=== PATIENT | female | born 1940 | race Caucasian/White ===

== ENCOUNTER 2019-07-31 11:28 | Observation (INO) | payer MEDICARE, MEDICAID ==
[2019-07-31 13:01] LABS: Absolute Neutrophil Ct (ANC) 3.55 (1.4-6.9); BASOPHIL % 0.6 % (0.0-0.4); Basophil (Absolute #) 0.03 (0-0.4); Eosinophil % 1.2 % (0.00-5.0); Eosinophil (Absolute #) 0.06 (0-0.5); Hematocrit 42.7 % (35-47); Hemoglobin 14.1 gm/dl (12.0-16.0); Lymphocyte (Absolute #) 0.93 (1.0-4.6); Lymphocytes % 18.5 % (24.0-44.0); Mean Cell Volume 91.8 fl (78-100); Mean Corpuscular Hemoglobin 30.3 pg (26-32); Mean Platelet Volume 9.2 fl (6-9.5); Monocyte (Absolute #) 0.45 (0.0-1.3); Neutrophil % 70.7 % (36.0-66.0); Platelet Count 217 K/mm3 (150-450); Red Blood Count 4.65 M/mm3 (4.1-5.4)
[2019-07-31] MEDS: ROCEPHIN 1 Gm-D5w 50 ml Bag** 1 G/50 ML IVPB IV SCH (13:16)
[2019-07-31] MEDS: Sodium Chloride 0.9% 1000 ML 1,000 ML IV SCH (13:16)
[2019-07-31] MEDS: solu-MEDROL 40 MG IV SCH ×2 (13:16→21:19)
[2019-07-31 13:18] LABS: ALKALINE PHOSPHATASE 60 U/L (38-126); ANION GAP 11.8 MEQ/L (5-15); BLOOD UREA NITROGEN 20 mg/dL (7-17); CHLORIDE 101 mmol/L (98-107); Calcium 9.6 mg/dL (8.4-10.2); Carbon Dioxide 33 mmol/L (22-30); Creatinine 1 0.81 mg/dL (0.52-1.04); Glucose 90 mg/dL (74-106); Potassium 3.5 mmol/L (3.5-5.1); SGOT/AST 45 U/L (14-36); SGPT/ALT 17 U/L (0-35); SODIUM 142 mmol/L (137-145); Total Protein 7.3 g/dL (6.3-8.2)
[2019-07-31] MEDS: DUONEB 0.5-3 MG/3 ml Neb IH SCH ×2 (14:26→20:40)
[2019-07-31] MEDS: Zithromax 500 MG/ 250 ML NaCl Premix 500 MG/250 ML IVPB IV SCH (14:44)
[2019-07-31 17:09] LABS: Appearance CLEAR (CLEAR); Bilirubin NEGATIVE (NEGATIVE); Blood NEGATIVE Ery/ul (0-5); Glucose NEGATIVE (NEGATIVE); Ketones NEGATIVE (NEGATIVE); Leukocyte Esterase TRACE (NEGATIVE); Mucus SLIGHT /HPF (NEGATIVE); Nitrite NEGATIVE (NEGATIVE); Protein,Urine Dip NEGATIVE (Negative); Specific Gravity 1.013 (1.005-1.025); Urobilinogen NEGATIVE mg/dL (0-1); WBC 0-2 /HPF (0-5)
[2019-07-31] MEDS ORDERED: Voltaren GEL TP PRN (17:30)
--- NOTE | 2019-07-31 17:30 | PCM.HP ---
History of Present Illness - Chief Complaint Chief Complaint: PNEUMONIA History of Present Illness: is a 79 year old female pt of mine from [facility] with PMHx HTN, Mobitz II block, Aortic aneurism, hyperglycemia, hyperbilirubinemia, anxiety/depression, and OA who was admitted with PNA after having been seen in [facility] care today. She started feeling sick 4d ago with sinus sx, congestion and rhinorrhea with cough. Today she had chest tightness in the morning, better with mucinex, so she came to be seen. She had wheezing and tight breath sounds on exam in and I was called for direct admission. - Review of Systems Ears, Nose, & Throat: Nose Congestion, Nose Discharge, Sinus Drainage Respiratory: Cough Cardiac: Chest Pain Abdominal/Gastrointestinal: Diarrhea (loose stool yesterday) Neurological: Dizziness (occ lightheadedness) All Other Systems: Reviewed and Negative Medications & Allergies Home Medications: Home Medication List Albuterol Sulfate [Proair Hfa] 8.5 gm IH Q6HPRN PRN 01/10/16 [History Confirmed 07/31/19] Alendronate Sodium 70 mg [Fosamax 70 MG] 70 mg PO WEEKLY 01/10/16 [ History Confirmed 07/31/19] Calcium Carbonate/Vitamin D3 [Calcium 1,000 + D3 Caplet] 2 each PO DAILY [History Confirmed 07/31/19] Multivitamin [Daily Multiple Vitamin] 1 each PO DAILY 01/10/16 [History Confirmed 07/31/19] [place]-3S/Dha/Epa/Fish Oil/D3 [Fish Oil + D3 Softgel] 1 each PO DAILY 01/10/16 [ History Confirmed 07/31/19] Simvastatin 40 mg [Zocor 40 mg] 20 mg PO DAILY 01/10/16 [History Confirmed 07/31] Acetaminophen [Tylenol Extra Strength] 500 mg PO Q6HPRN PRN 07/31/19 [History Confirmed 07/31/19] Albuterol Sulfate Mdi [Proair Hfa MDI] 1 - 2 puffs IH Q4-6HPRN PRN [History Confirmed 07/31/19] C,E,Zinc,Copper 11/Qqaxb7n/Lut [Ocuvite Adult 50 Plus Softgel] 1 each PO DAILY 07/31/19 [History Confirmed 07/31/19] Carboxymethylcellulose Sodium [Refresh Liquigel] 1 ml OP DAILY 07/31/19 [ History Confirmed 07/31/19] Clopidogrel Bisulfate [Clopidogrel] 75 mg PO DAILY 07/31/19 [History Confirmed 07/31/19] Diclofenac Sodium Gel [Voltaren GEL] 100 gm TP BID PRN 07/31/19 [History Confirmed 07/31/19] Docusate Sodium 100 mg [Colace 100 MG] 100 mg PO HS 07/31/19 [History Confirmed 07/31/19] Loratadine/Pseudoephedrine [Allergy Relief-Nasal Decong Tb] 1 each IH DAILY 10/07 [History Confirmed 07/31/19] Melatonin 1 - 2 tab PO HS 07/31/19 [History Confirmed 07/31/19] [place]-3/Dha/Epa/Fish Oil [Fish Oil 1,000 mg Softgel] 1,000 mg PO DAILY 07/31/19 [History Confirmed 07/31/19] Omeprazole 20 mg PO DAILY 07/31/19 [History Confirmed 07/31/19] hydroCHLOROthiazide [Hydrochlorothiazide] 12.5 mg PO DAILY 07/31/19 [History Confirmed 07/31/19] Allergies/Adverse Reactions: Allergies Allergy/AdvReac Type Severity Reaction Status Date / Time No Known Drug Allergies Allergy Unverified 02/14/16 12:49 - Past Medical History Past Medical History: Yes Neurological History: No Pertinent History ENT History: Cataracts Cardiac History: High Cholesterol, Hypertension Respiratory History: Pneumonia Endocrine Medical History: No Pertinent History Musculoskelatal History: Osteoarthritis, Other GI Medical History: GERD History: No Pertinent History Pyscho-Social History: No Pertinent History Reproductive Disorders: No Pertinent History Comment: scoliosis, increased SOB with walking due to diaphragm elevated up into lungs. B THR 2003 and 2008. R RTC repair, hysterectomy - Female History Are you now?: No - Past Surgical History Past Surgical History: Yes Neuro Surgical History: No Pertinent History Cardiac History: Cardiac Catheterization, Pacemaker Respiratory Surgery: No Pertinent History GI Surgical History: Appendectomy Genitourinary Surgical Hx: No Pertinent History Musculskeletal Surgical Hx: Joint Replacement, Orthopedic Surgery Female Surgical History: Hysterectomy, Tubal Ligation, Other Other Surgical History: LUMPS REMOVED FROM BREAST, LEFT KNEE REPLACEMET, BOTH HIP REPLACEMENTS, ROTATOR CUFF - Social History Smoking Status: Never smoker Exposure to second hand smoke: No Alcohol: None Drug Use: none - Physical Exam Vital Signs: Vital Signs - 24 hr Temp Pulse Resp BP Pulse Ox 07/31/19 16:00 98.0 F 81 18 120/64 90 L 07/31/19 14:32 73 18 93 L 07/31/19 11:49 98.5 F 83 20 149/80 97 General Appearance: no apparent distress, alert Neurologic Exam: oriented x 3, cooperative Eye Exam: eyes nml inspection Ears, Nose, Throat Exam: moist mucous membranes Neck Exam: normal inspection, non-tender, No lymphadenopathy Respiratory Exam: diminished breath sounds, wheezing (in all boggs), No crackles/rales, No rhonchi Cardiovascular Exam: regular rate/rhythm, No normal heart sounds (distant), No murmur Gastrointestinal/Abdomen Exam: soft, normal bowel sounds, No tenderness, No distention, No mass, No guarding, No rebound Extremity Exam: normal inspection, No pedal edema, No swelling Skin Exam: normal color, warm, dry, No rash Results - Labs Lab/Micro Results: Lab Results-Last 24 Hours 07/31/19 07/31/19 07/31/19 Range/Units 12:50 12:50 13:55 WBC 5.0 (4.0-10.5) K/mm3 RBC 4.65 (4.1-5.4) M/mm3 Hgb 14.1 (12.0-16.0) gm/dl Hct 42.7 (35-47) % MCV 91.8 (78-100) fl MCH 30.3 (26-32) pg MCHC 33.0 (32-36) g/dl RDW 14.0 (11.5-14.0) % Plt Count 217 (150-450) K/mm3 MPV 9.2 (6-9.5) fl Gran % 70.7 H (36.0-66.0) % Eos # (Auto) 0.06 (0-0.5) Absolute Lymphs (auto) 0.93 L (1.0-4.6) Absolute Monos (auto) 0.45 (0.0-1.3) Lymphocytes % 18.5 L (24.0-44.0) % Monocytes % 9.0 (0.0-12.0) % Eosinophils % 1.2 (0.00-5.0) % Basophils % 0.6 (0.0-0.4) % Absolute Granulocytes 3.55 (1.4-6.9) Basophils # 0.03 (0-0.4) Sodium 142 (137-145) mmol/L Potassium 3.5 (3.5-5.1) mmol/L Chloride 101 (98-107) mmol/L Carbon Dioxide 33 H (22-30) mmol/L Anion Gap 11.8 (5-15) MEQ/L BUN 20 H (7-17) mg/dL Creatinine 0.81 (0.52-1.04) mg/dL Estimated GFR > 60.0 ML/MIN Glucose 90 (74-106) mg/dL Lactic Acid 0.9 (0.4-2.0) Calcium 9.6 (8.4-10.2) mg/dL Total Bilirubin 0.80 (0.2-1.3) mg/dL AST 45 H (14-36) U/L ALT 17 (0-35) U/L Alkaline Phosphatase 60 (38-126) U/L Serum Total Protein 7.3 (6.3-8.2) g/dL Albumin 4.0 (3.5-5.0) g/dL Urine Color (YELLOW) Urine Appearance (CLEAR) Urine pH (5-6) Ur Specific [place] (1.005-1.025) Urine Protein (Negative) Urine Ketones (NEGATIVE) Urine Blood (0-5) Lance/ul Urine Nitrite (NEGATIVE) Urine Bilirubin (NEGATIVE) Urine Urobilinogen (0-1) mg/dL Ur Leukocyte Esterase (NEGATIVE) Urine WBC (Auto) (0-5) /HPF Urine RBC (Auto) (0-2) /HPF U Epithel Cells (Auto) (FEW) /HPF Urine Bacteria (Auto) (NEGATIVE) /HPF Urine Mucus (Auto) (NEGATIVE) /HPF Urine Culture Reflexed (NO) Urine Glucose (NEGATIVE) mg/dL 07/31/19 Range/Units 17:06 WBC (4.0-10.5) K/mm3 RBC (4.1-5.4) M/mm3 Hgb (12.0-16.0) gm/dl Hct (35-47) % MCV (78-100) fl MCH (26-32) pg MCHC (32-36) g/dl RDW (11.5-14.0) % Plt Count (150-450) K/mm3 MPV (6-9.5) fl Gran % (36.0-66.0) % Eos # (Auto) (0-0.5) Absolute Lymphs (auto) (1.0-4.6) Absolute Monos (auto) (0.0-1.3) Lymphocytes % (24.0-44.0) % Monocytes % (0.0-12.0) % Eosinophils % (0.00-5.0) % Basophils % (0.0-0.4) % Absolute Granulocytes (1.4-6.9) Basophils # (0-0.4) Sodium (137-145) mmol/L Potassium (3.5-5.1) mmol/L Chloride (98-107) mmol/L Carbon Dioxide (22-30) mmol/L Anion Gap (5-15) MEQ/L BUN (7-17) mg/dL Creatinine (0.52-1.04) mg/dL Estimated GFR ML/MIN Glucose (74-106) mg/dL Lactic Acid (0.4-2.0) Calcium (8.4-10.2) mg/dL Total Bilirubin (0.2-1.3) mg/dL AST (14-36) U/L ALT (0-35) U/L Alkaline Phosphatase (38-126) U/L Serum Total Protein (6.3-8.2) g/dL Albumin (3.5-5.0) g/dL Urine Color YELLOW (YELLOW) Urine Appearance CLEAR (CLEAR) Urine pH 5.0 (5-6) Ur Specific [place] 1.013 (1.005-1.025) Urine Protein NEGATIVE (Negative) Urine Ketones NEGATIVE (NEGATIVE) Urine Blood NEGATIVE (0-5) Lance/ul Urine Nitrite NEGATIVE (NEGATIVE) Urine Bilirubin NEGATIVE (NEGATIVE) Urine Urobilinogen NEGATIVE (0-1) mg/dL Ur Leukocyte Esterase TRACE (NEGATIVE) Urine WBC (Auto) 0-2 (0-5) /HPF Urine RBC (Auto) NONE (0-2) /HPF U Epithel Cells (Auto) NONE (FEW) /HPF Urine Bacteria (Auto) NONE (NEGATIVE) /HPF Urine Mucus (Auto) SLIGHT (NEGATIVE) /HPF Urine Culture Reflexed ORDERED SEPARATELY (NO) Urine Glucose NEGATIVE (NEGATIVE) mg/dL - Radiology Impressions Radiology Exams & Impressions: Radiology Procedures Category Date Time Status CHEST 2 VIEWS (PA AND LAT) Routine Exams 08/01/19 05:00 Ordered - Other Procedures and Tests Respiratory Therapy 07/31/19 07:00 Peak Expiratory Flow Rate DAILY 07/31/19 11:38 Oxygen Nasal Cannula 2 lpm 08/01/19 07:00 Respiratory Therapy Assessment DAILY Assessment/Plan (1) Pneumonia Current Visit: Yes Status: Acute Qualifiers: Pneumonia type: due to unspecified organism Laterality: unspecified laterality Lung location: unspecified part of lung Qualified Code(s): J18.9 - Pneumonia, unspecified organism Assessment & Plan: Pt denies any hx of COPD, and no hx TOB use. 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 Clinically, pna. On rocephin and zithromax and IV solumedrol. Feeling better already. Duonebs. May need CT chest if not much improvement by tomorrow. Will likely need several days of treatment due to her age and condition. Code(s): J18.9 - PNEUMONIA, UNSPECIFIED ORGANISM (2) HTN (hypertension) Current Visit: Yes Status: Acute Code(s): I10 - ESSENTIAL (PRIMARY) HYPERTENSION
[2019-07-31] MEDS ORDERED: MEDICATION INTERVENTION MC SCH (17:45)
[2019-07-31 18:28] LABS: INFLUENZA A NEGATIVE (NEGATIVE); INFLUENZA B NEGATIVE (NEGATIVE); RESPIRATORY SYNCTIAL VIRUS NEGATIVE (Negative)
[2019-07-31] MEDS ORDERED: Tussionex Pennkinetic Susp PO PRN (21:00)
[2019-07-31] MEDS: CEPACOL SORE THROAT LOZENGE PO PRN (21:15)
[2019-07-31] MEDS: Colace 100 MG PO SCH (21:19)
[2019-07-31] MEDS: ZOCOR 20MG PO SCH (21:19)
[2019-07-31] MEDS ORDERED: MELATONIN PO SCH (22:00)
[2019-08-01] MEDS: Sodium Chloride 0.9% 1000 ML 1,000 ML IV SCH ×2 (04:04→21:05)
[2019-08-01 05:02] LABS: Hematocrit 41.3 % (35-47); Hemoglobin 13.4 gm/dl (12.0-16.0); Mean Corpuscular Hemoglobin 30.2 pg (26-32); Mean Corpuscular Hgb Concent. 32.4 g/dl (32-36); Mean Platelet Volume 9.1 fl (6-9.5); Platelet Count 208 K/mm3 (150-450); Red Blood Count 4.44 M/mm3 (4.1-5.4); Red Cell Distribution Width 13.9 % (11.5-14.0); White Blood Count 4.8 K/mm3 (4.0-10.5)
[2019-08-01 05:08] LABS: ANION GAP 10.7 MEQ/L (5-15); BLOOD UREA NITROGEN 22 mg/dL (7-17); CHLORIDE 104 mmol/L (98-107); Calcium 8.7 mg/dL (8.4-10.2); Carbon Dioxide 31 mmol/L (22-30); Creatinine 1 0.75 mg/dL (0.52-1.04); Glucose 138 mg/dL (74-106); Potassium 4.2 mmol/L (3.5-5.1); SODIUM 142 mmol/L (137-145)
[2019-08-01] MEDS: solu-MEDROL 40 MG IV SCH ×3 (05:48→21:06)
[2019-08-01] MEDS: DUONEB 0.5-3 MG/3 ml Neb IH SCH ×4 (07:23→19:37)
[2019-08-01] MEDS: CEPACOL SORE THROAT LOZENGE PO PRN ×3 (08:52→21:06)
[2019-08-01] MEDS: Tussionex Pennkinetic Susp PO PRN ×2 (08:52→21:08)
[2019-08-01] MEDS: Artificial Tears 15 ML OP SCH (08:54)
[2019-08-01] MEDS: PLAVIX 75 MG Tablet PO SCH (08:55)
[2019-08-01] MEDS: Ocuvite Tablet PO SCH (08:55)
[2019-08-01] MEDS: Protonix 40MG Tablet PO SCH (08:55)
[2019-08-01] MEDS: CLARITIN-D 24HR TABLET PO SCH (08:55)
[2019-08-01] MEDS: hydroDIURIL 25 MG PO SCH (08:56)
[2019-08-01] MEDS: ROCEPHIN 1 Gm-D5w 50 ml Bag** 1 G/50 ML IVPB IV SCH (08:57)
[2019-08-01] MEDS ORDERED: NON-FORMULARY ITEM (Simvastatin 40 Mg [Zocor 40 Mg] 20 MG) PO SCH (10:00)
[2019-08-01] MEDS ORDERED: NON-FORMULARY ITEM (Omeprazole [Omeprazole] 20 MG) PO SCH (10:00)
[2019-08-01] MEDS ORDERED: CARBOXYMETHYLCELLULOSE SODIUM OP SCH (10:00)
[2019-08-01] MEDS ORDERED: OMEGA3S PO SCH (10:00)
[2019-08-01] MEDS ORDERED: C E ZINC COPPER PO SCH (10:00)
[2019-08-01] MEDS ORDERED: [UNRECOGNIZED DRUG - OTHER] PO SCH (10:00)
[2019-08-01] MEDS ORDERED: LUT PO SCH (10:00)
[2019-08-01] MEDS: ENOXAPARIN SODIUM SQ SCH (12:29)
[2019-08-01] MEDS: Zithromax 500 MG/ 250 ML NaCl Premix 500 MG/250 ML IVPB IV SCH (13:20)
--- NOTE | 2019-08-01 16:02 | PCM.NOTE ---
Date and Time: 08/01/19 155 Subjective Assessment: Pt is feeling good right now. She is constipated. Would like to get up and walk. - Review of Systems Constitutional: No Fever Respiratory: Cough Objective Exam General Appearance: no apparent distress, alert Neurologic Exam: oriented x 3, cooperative Skin Exam: normal color, warm, dry, No rash Eye Exam: eyes nml inspection Ears, Nose, Throat Exam: moist mucous membranes Neck Exam: normal inspection Respiratory Exam: diminished breath sounds (fair air exchange), rhonchi (RLL), wheezing (R sided) Cardiovascular Exam: regular rate/rhythm, normal heart sounds, No murmur Extremity Exam: normal inspection, swelling (trace edema bilat LE) Back Exam: normal inspection, No rash OBJECTIVE DATA Vital Signs: Vital Signs - 24 hr Temp Pulse Resp BP Pulse Ox 08/01/19 15:34 84 16 92 L 08/01/19 12:00 97.7 F 84 18 139/63 92 L 08/01/19 10:58 106 H 20 95 08/01/19 07:24 96.1 F 83 18 138/67 92 L 08/01/19 07:00 105 H 22 94 L 08/01/19 04:10 98.3 F 75 18 134/64 93 L 08/01/19 00:18 98.1 F 69 20 124/66 92 L 07/31/19 20:41 74 18 93 L 07/31/19 20:00 97.9 F 75 22 146/74 92 L 07/31/19 16:00 98.0 F 81 18 120/64 90 L Pain Assessment - Last Documented Pain Intensity 0 Pain Scale Used 0-10 Pain Scale Intake and Output: Intake & Output 07/30/19 07/31/19 08/01/19 08/02/19 11:59 11:59 11:59 11:59 Intake Total 1924 Output Total 1500 Balance 424 Weight 85 kg Lab Results: Lab Results-Last 24 Hours 07/31/19 07/31/19 07/31/19 Range/Units 17:06 17:36 17:52 WBC (4.0-10.5) K/mm3 RBC (4.1-5.4) M/mm3 Hgb (12.0-16.0) gm/dl Hct (35-47) % MCV (78-100) fl MCH (26-32) pg MCHC (32-36) g/dl RDW (11.5-14.0) % Plt Count (150-450) K/mm3 MPV (6-9.5) fl Sodium (137-145) mmol/L Potassium (3.5-5.1) mmol/L Chloride (98-107) mmol/L Carbon Dioxide (22-30) mmol/L Anion Gap (5-15) MEQ/L BUN (7-17) mg/dL Creatinine (0.52-1.04) mg/dL Estimated GFR ML/MIN Glucose (74-106) mg/dL Calcium (8.4-10.2) mg/dL Troponin I < 0.012 (0.000-0.034) ng/mL Urine Color YELLOW (YELLOW) Urine Appearance CLEAR (CLEAR) Urine pH 5.0 (5-6) Ur Specific [place] 1.013 (1.005-1.025) Urine Protein NEGATIVE (Negative) Urine Ketones NEGATIVE (NEGATIVE) Urine Blood NEGATIVE (0-5) Lance/ul Urine Nitrite NEGATIVE (NEGATIVE) Urine Bilirubin NEGATIVE (NEGATIVE) Urine Urobilinogen NEGATIVE (0-1) mg/dL Ur Leukocyte Esterase TRACE (NEGATIVE) Urine WBC (Auto) 0-2 (0-5) /HPF Urine RBC (Auto) NONE (0-2) /HPF U Epithel Cells (Auto) NONE (FEW) /HPF Urine Bacteria (Auto) NONE (NEGATIVE) /HPF Urine Mucus (Auto) SLIGHT (NEGATIVE) /HPF Urine Culture Reflexed ORDERED SEPARATELY (NO) Urine Glucose NEGATIVE (NEGATIVE) mg/dL Influenza Type A Ag NEGATIVE (NEGATIVE) Influenza Type B Ag NEGATIVE (NEGATIVE) RSV (PCR) NEGATIVE (Negative) 08/01/19 08/01/19 Range/Units 04:56 04:56 WBC 4.8 (4.0-10.5) K/mm3 RBC 4.44 (4.1-5.4) M/mm3 Hgb 13.4 (12.0-16.0) gm/dl Hct 41.3 (35-47) % MCV 93.0 (78-100) fl MCH 30.2 (26-32) pg MCHC 32.4 (32-36) g/dl RDW 13.9 (11.5-14.0) % Plt Count 208 (150-450) K/mm3 MPV 9.1 (6-9.5) fl Sodium 142 (137-145) mmol/L Potassium 4.2 (3.5-5.1) mmol/L Chloride 104 (98-107) mmol/L Carbon Dioxide 31 H (22-30) mmol/L Anion Gap 10.7 (5-15) MEQ/L BUN 22 H (7-17) mg/dL Creatinine 0.75 (0.52-1.04) mg/dL Estimated GFR > 60.0 ML/MIN Glucose 138 H (74-106) mg/dL Calcium 8.7 (8.4-10.2) mg/dL Troponin I (0.000-0.034) ng/mL Urine Color (YELLOW) Urine Appearance (CLEAR) Urine pH (5-6) Ur Specific [place] (1.005-1.025) Urine Protein (Negative) Urine Ketones (NEGATIVE) Urine Blood (0-5) Lance/ul Urine Nitrite (NEGATIVE) Urine Bilirubin (NEGATIVE) Urine Urobilinogen (0-1) mg/dL Ur Leukocyte Esterase (NEGATIVE) Urine WBC (Auto) (0-5) /HPF Urine RBC (Auto) (0-2) /HPF U Epithel Cells (Auto) (FEW) /HPF Urine Bacteria (Auto) (NEGATIVE) /HPF Urine Mucus (Auto) (NEGATIVE) /HPF Urine Culture Reflexed (NO) Urine Glucose (NEGATIVE) mg/dL Influenza Type A Ag (NEGATIVE) Influenza Type B Ag (NEGATIVE) RSV (PCR) (Negative) Radiology Exams: Radiology Procedures Category Date Time Status CHEST 2 VIEWS (PA AND LAT) Routine Exams 08/01/19 07:06 Taken Assessment/Plan (1) Pneumonia Current Visit: Yes Status: Acute Qualifiers: Pneumonia type: due to unspecified organism Laterality: unspecified laterality Lung location: unspecified part of lung Qualified Code(s): J18.9 - Pneumonia, unspecified organism Assessment & Plan: On rocephin and zithromax day #2. Code(s): J18.9 - PNEUMONIA, UNSPECIFIED ORGANISM (2) HTN (hypertension) Current Visit: Yes Status: Acute Qualifiers: Hypertension type: essential hypertension Qualified Code(s): I10 - Essential (primary) hypertension Code(s): I10 - ESSENTIAL (PRIMARY) HYPERTENSION (3) Constipated Current Visit: Yes Status: Acute Qualifiers: Constipation type: slow transit constipation Qualified Code(s): K59.01 - Slow transit constipation Code(s): K59.00 - CONSTIPATION, UNSPECIFIED
[2019-08-01] MEDS: Miralax Powder 17GM PACKET PO SCH (16:28)
--- NOTE | 2019-08-01 20:37 | XRAY ---
Indication: Pneumonia. Comparison: One day earlier. PA/lateral chest unchanged again demonstrating chronic left hemidiaphragm elevation with adjacent atelectasis. Heart is not enlarged again with left pacemaker. No new/acute cardiopulmonary abnormalities.
[2019-08-01] MEDS: Colace 100 MG PO SCH (21:06)
[2019-08-01] MEDS: ZOCOR 20MG PO SCH (21:07)
[2019-08-02] MEDS: TYLENOL EXTRA STRENGTH 500 MG PO PRN ×3 (02:16→20:43)
[2019-08-02] MEDS: solu-MEDROL 40 MG IV SCH ×3 (06:31→20:43)
[2019-08-02] MEDS: DUONEB 0.5-3 MG/3 ml Neb IH SCH ×4 (07:15→20:48)
--- NOTE | 2019-08-02 08:15 | PCM.NOTE ---
Date and Time: 08/02/19812 Subjective Assessment: She is draining now from her nose. No new complaints this morning. Thinks she is going to have a BM. - Review of Systems Constitutional: No Fever Respiratory: Cough Objective Exam General Appearance: no apparent distress, alert Neurologic Exam: oriented x 3, cooperative Skin Exam: normal color, warm, dry, No rash Respiratory Exam: diminished breath sounds (good air exchange), wheezing ( scattered, throughout), No crackles/rales, No rhonchi Cardiovascular Exam: regular rate/rhythm, normal heart sounds, No murmur Gastrointestinal/Abdomen Exam: soft, normal bowel sounds, No tenderness, No distention, No mass, No guarding, No rebound Extremity Exam: swelling (trace bilat LE edema) OBJECTIVE DATA Vital Signs: Vital Signs - 24 hr Temp Pulse Resp BP Pulse Ox 08/02/19 07:36 97.4 F 73 18 145/76 96 08/02/19 03:35 98.3 F 72 22 166/74 94 L 08/02/19 00:00 99.0 F 72 18 155/72 92 L 08/01/19 20:00 98.5 F 77 20 155/76 95 08/01/19 19:37 75 18 93 L 08/01/19 16:00 98.1 F 96 H 18 122/61 92 L 08/01/19 15:34 84 16 92 L 08/01/19 12:00 97.7 F 84 18 139/63 92 L 08/01/19 10:58 106 H 20 95 Pain Assessment - Last Documented Pain Intensity 0 Pain Scale Used 0-10 Pain Scale Intake and Output: Intake & Output 07/30/19 07/31/19 08/01/19 08/02/19 11:59 11:59 11:59 11:59 Intake Total 1924 1833 Output Total 1500 Balance 424 1833 Weight 85 kg Radiology Exams: Radiology Procedures Category Date Time Status CHEST 2 VIEWS (PA AND LAT) Routine Exams 08/01/19 07:06 Completed Assessment/Plan (1) Pneumonia Current Visit: Yes Status: Acute Qualifiers: Pneumonia type: due to unspecified organism Laterality: unspecified laterality Lung location: unspecified part of lung Qualified Code(s): J18.9 - Pneumonia, unspecified organism Assessment & Plan: on rocephin and zithromax day #3. She is improving, albeit slowly. steroid 40mg IV tid. Code(s): J18.9 - PNEUMONIA, UNSPECIFIED ORGANISM (2) HTN (hypertension) Current Visit: Yes Status: Acute Qualifiers: Hypertension type: essential hypertension Qualified Code(s): I10 - Essential (primary) hypertension Code(s): I10 - ESSENTIAL (PRIMARY) HYPERTENSION (3) Constipated Current Visit: Yes Status: Acute Qualifiers: Constipation type: slow transit constipation Qualified Code(s): K59.01 - Slow transit constipation Assessment & Plan: improving Code(s): K59.00 - CONSTIPATION, UNSPECIFIED (4) Muscular deconditioning Current Visit: Yes Status: Acute Assessment & Plan: consult PT Code(s): R29.898 - OTH SYMPTOMS AND SIGNS INVOLVING THE MUSCULOSKELETAL SYSTEM
[2019-08-02] MEDS: Protonix 40MG Tablet PO SCH (08:55)
[2019-08-02] MEDS: Ocuvite Tablet PO SCH (08:55)
[2019-08-02] MEDS: Artificial Tears 15 ML OP SCH (08:56)
[2019-08-02] MEDS: PLAVIX 75 MG Tablet PO SCH (08:56)
[2019-08-02] MEDS: hydroDIURIL 25 MG PO SCH (08:56)
[2019-08-02] MEDS: ENOXAPARIN SODIUM SQ SCH (08:56)
[2019-08-02] MEDS: Miralax Powder 17GM PACKET PO SCH (08:57)
[2019-08-02] MEDS: CLARITIN-D 24HR TABLET PO SCH (08:57)
[2019-08-02] MEDS: ROCEPHIN 1 Gm-D5w 50 ml Bag** 1 G/50 ML IVPB IV SCH (08:58)
[2019-08-02] MEDS: Tussionex Pennkinetic Susp PO PRN ×2 (10:44→23:02)
[2019-08-02] MEDS: Zithromax 500 MG/ 250 ML NaCl Premix 500 MG/250 ML IVPB IV SCH (14:06)
[2019-08-02] MEDS: CEPACOL SORE THROAT LOZENGE PO PRN (14:13)
[2019-08-02] MEDS: Sodium Chloride 0.9% 1000 ML 1,000 ML IV SCH (15:41)
[2019-08-02] MEDS ORDERED: Miralax Powder 17GM PACKET PO SCH ×2 (17:00→22:00)
[2019-08-02] MEDS: ZOCOR 20MG PO SCH (20:42)
[2019-08-02] MEDS: Colace 100 MG PO SCH (20:43)
[2019-08-03] MEDS: Sodium Chloride 0.9% 1000 ML 1,000 ML IV SCH (03:11)
[2019-08-03] MEDS: solu-MEDROL 40 MG IV SCH (05:39)
[2019-08-03] MEDS: DUONEB 0.5-3 MG/3 ml Neb IH SCH (07:24)
[2019-08-03 08:10] VITALS: BP 175/81; PULSE 65; O2SAT 94
[2019-08-03] MEDS: ENOXAPARIN SODIUM SQ SCH (08:48)
[2019-08-03] MEDS: PLAVIX 75 MG Tablet PO SCH (08:48)
[2019-08-03] MEDS: CLARITIN-D 24HR TABLET PO SCH (08:48)
[2019-08-03] MEDS: Artificial Tears 15 ML OP SCH (08:49)
[2019-08-03] MEDS: hydroDIURIL 25 MG PO SCH (08:49)
[2019-08-03] MEDS: Ocuvite Tablet PO SCH (08:49)
[2019-08-03] MEDS: ROCEPHIN 1 Gm-D5w 50 ml Bag** 1 G/50 ML IVPB IV SCH (08:54)
[2019-08-03] MEDS: Protonix 40MG Tablet PO SCH (08:55)
--- NOTE | 2019-08-03 09:17 | PCM.DS ---
Discharge Summary Date of Admission: 07/31/19 11:32 Admitting Physician: ROBERT NAVARRO Primary Care Provider: ROBERT NAVARRO Allergies Allergies No Known Drug Allergies Allergy (Unverified 02/14/16 12:49) Hospital Summary - Hospital Course Hospital Course: Pt is 79 yo pt of mine from [facility] with OA, aortic aneurism, hyperglycemia, HTN, Mobitz type II block who came in through with pneumonia. She was admitted directly by me. 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 She was put on IV rocephin and zithromax, IV solumedrol , and has improved steadily. Today she is feeling better and her lungs sound much better than at admission. Will be discharged to home to finish 10d total of antibiotics. - Vitals & Intake/Output Vital Signs: Vital Signs Temperature 98.1 F 08/03/19 08:00 Pulse Rate 65 08/03/19 08:00 Respiratory Rate 18 08/03/19 08:00 Blood Pressure 175/81 08/03/19 08:00 O2 Sat by Pulse Oximetry 94 L 08/03/19 08:00 Intake & Output: Intake & Output 07/31/19 08/01/19 08/02/19 08/03/19 11:59 11:59 11:59 11:59 Intake Total 1924 1833 1725 Output Total 3424 372 7938 Balance 424 1733 125 Weight 85 kg - Lab Result Diagrams: 08/01/19 04:56 08/01/19 04:56 Micro Results-Entire Visit: Microbiology 07/31/19 17:06 Urine Culture - Final Urine, Void <10K NORMAL SKIN [place] PROBABLE SKIN CONTAMINANT - Procedures and Test Procedures and Tests throughout Hospitalization: Therapy Orders & Screens 07/31/19 07:00 Peak Expiratory Flow Rate DAILY Comment: Reason For Exam: Diagnosis: PNEUMONIA 07/31/19 11:38 Oxygen Nasal Cannula 2 lpm Comment: O2 TO KEEP SATS 88-93% Respiratory Nebulizer UD Comment: SHANIKA QID 08/01/19 07:00 Respiratory Therapy Assessment DAILY Comment: Diagnosis: PNEUMONIA 08/02/19 08:13 PT Eval & Treat ( Order) ROUTINE Reason for Eval:: deconditioning Diagnosis: PNEUMONIA 08/02/19 14:45 Incentive Spirometry UD Comment: Diagnosis: PNEUMONIA Discharge Exam General Appearance: no apparent distress, alert Neurologic Exam: oriented x 3, cooperative Eye Exam: eyes nml inspection Ears, Nose, Throat Exam: moist mucous membranes Neck Exam: normal inspection Respiratory Exam: normal breath sounds, wheezing (very faint, scattered), No diminished breath sounds (good air exchange), No crackles/rales, No rhonchi Cardiovascular Exam: regular rate/rhythm, normal heart sounds, No murmur Extremity Exam: swelling (trace edema as usual) Skin Exam: normal color, warm, dry, No rash Final Diagnosis/Problem List - Final Discharge Diagnosis/Problem (1) Pneumonia Current Visit: Yes Status: Acute Assessment & Plan: Doing well, she will finish augmentin 6d at home. also prednisone x 1 wk. F/u with risk prevention engineer outpatient for ?COPD unknown etiology. I believe my office has made that appointment. Code(s): J18.9 - PNEUMONIA, UNSPECIFIED ORGANISM (2) HTN (hypertension) Current Visit: Yes Status: Chronic Code(s): I10 - ESSENTIAL (PRIMARY) HYPERTENSION (3) Constipated Current Visit: Yes Status: Resolved Code(s): K59.00 - CONSTIPATION, UNSPECIFIED (4) Muscular deconditioning Current Visit: Yes Status: Chronic Assessment & Plan: PT walked with pt yesterday she thinks with no issues. Home today. Code(s): R29.898 - OTH SYMPTOMS AND SIGNS INVOLVING THE MUSCULOSKELETAL SYSTEM - Discharge Disposition: Home, Self-Care Condition: Good Prescriptions: New Amox Tr/Potass Clav. 875 mg [Augmentin 875-125 Tablet] 875 mg PO BID # 12 tablet Prednisone 20 mg [Deltasone 20 mg] 20 mg PO DAILY #17 tablet Hydrocod Psx/Chlor-You [Tussionex Pennkinetic Susp] 5 ml PO BID PRN PRN #4 oz MDD 2 PRN Reason: Cough Continue Calcium Carbonate/Vitamin D3 [Calcium 1,000 + D3 Caplet] 2 each PO DAILY Multivitamin [Daily Multiple Vitamin] 1 each PO DAILY Albuterol Sulfate [Proair Hfa] 8.5 gm IH Q6HPRN PRN PRN Reason: Shortness Of Breath Simvastatin 40 mg [Zocor 40 mg] 20 mg PO DAILY Alendronate Sodium 70 mg [Fosamax 70 MG] 70 mg PO WEEKLY [place]-3S/Dha/Epa/Fish Oil/D3 [Fish Oil-Vit D3 Softgel] 1 each PO DAILY Albuterol Sulfate Mdi [Proair Hfa MDI] 1 - 2 puffs IH Q4-6HPRN PRN PRN Reason: sob Diclofenac Sodium Gel [Voltaren GEL] 100 gm TP BID PRN Carboxymethylcellulose Sodium [Refresh Liquigel] 1 ml OP DAILY Loratadine/Pseudoephedrine [Allergy Relief-Nasal Decong Tb] 1 each IH DAILY Acetaminophen [Tylenol Extra Strength] 500 mg PO Q6HPRN PRN PRN Reason: Pain C,E,Zinc,Copper 11/Qrxas0m/Lut [Ocuvite Adult 50 Plus Softgel] 1 each PO DAILY [place]-3/Dha/Epa/Fish Oil [Fish Oil 1,000 mg Softgel] 1,000 mg PO DAILY Omeprazole 20 mg PO DAILY hydroCHLOROthiazide [Hydrochlorothiazide] 12.5 mg PO DAILY Melatonin 1 - 2 tab PO HS Clopidogrel Bisulfate [Clopidogrel] 75 mg PO DAILY Docusate Sodium 100 mg [Colace 100 MG] 100 mg PO HS Follow up with: ROBERT NAVARRO [Primary Care Provider] - 08/10/19 11:15 am
[2019-08-03] MEDS: Tussionex Pennkinetic Susp PO PRN (10:06)
== END 2019-08-03 10:55 | disposition home or self-care (01) ==
LOC: MED SURG 11:32
PROVIDERS: ADMIT Family Medicine; ATTEND Family Medicine
DX: J18.9 Pneumonia, unspecified organism (principal); I44.1 Atrioventricular block, second degree; I10 Essential (primary) hypertension; R73.9 Hyperglycemia, unspecified; K59.00 Constipation, unspecified; R29.898 Other symptoms and signs involving the musculoskeletal system; I71.9 Aortic aneurysm of unspecified site, without rupture; E80.6 Other disorders of bilirubin metabolism; F41.8 Other specified anxiety disorders; R42 Dizziness and giddiness; R19.7 Diarrhea, unspecified; Z79.899 Other long term (current) drug therapy
CPT/HCPCS: 36415; 71046; 80048; 80053; 81001; 83605; 84484; 85025; 85027; 87086; 87631; 94150; 94640; 94760; 97161; 97530; G0378; J0456; J0696; J1650; J2920; A9270-GY

== ENCOUNTER 2023-10-08 11:17 | Emergency (ER) | payer MEDICARE ==
--- NOTE | 2023-10-08 11:23 | ERPHSYRPT ---
- History of Present Illness Time Seen by Provider: 10/08/23 11:23 Source: patient, family Exam Limitations: no limitations Physician History: This is a morbidly obese 83-year-old white female patient of Dr. 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 The left hip replacement was performed 20 years ago. She has noticed that the left hip is becoming more painful. It worsened last evening and she actually took 325 mg of plain Tylenol and repeated that dose this morning without much benefit. Patient denies any fall or injury to the left hip. Patient is able to bear weight. Patient has a history of atrial fibrillation and is on Xarelto. She has a history of hyperlipidemia and hypertension. Timing/Duration: yesterday, worse Context: unknown Quality: aching Hip Pain Location: hip (L) Severity of Pain-Max: mild (To moderate) Severity of Pain-Current: mild Modifying Factors: Improves With: movement (To moderate) Symptoms prior to fall: none Associated Symptoms: denies symptoms Allergies/Adverse Reactions: No Known Drug Allergies Allergy (Verified 10/08/23 11:29) Home Medications: Alendronate Sodium 70 mg [Fosamax 70 MG] 70 mg PO WEEKLY 01/10/16 [H istory] Multivitamin [Daily Multiple Vitamin] 1 each PO DAILY 01/10/16 [History] Docusate Sodium 100 mg [Docusate Sodium 100 MG] 100 mg PO HS 07/31/19 [History] hydroCHLOROthiazide [Hydrochlorothiazide] 12.5 mg PO DAILY 07/31/19 [History] Potassium Chloride 1 tab PO DAILY 10/08/23 [History] Rivaroxaban [Xarelto] 1 tab PO DAILY 10/08/23 [History] Simvastatin 20Mg [Zocor 20Mg] 1 tab PO DAILY 10/08/23 [History] Travel Risk - International Travel Have you traveled outside of the country in past 3 weeks: No - Coronavirus Screening Are you exhibiting any of the following symptoms?: No Close contact with a COVID-19 positive Pt in past 14-21 Days: No - Review of Systems Constitutional: No Symptoms Eyes: No Symptoms Ears, Nose, & Throat: No Symptoms Respiratory: No Symptoms Cardiac: No Symptoms Abdominal/Gastrointestinal: No Symptoms Genitourinary Symptoms: No Symptoms Musculoskeletal: Joint Pain Skin: No Symptoms (Left hip) Neurological: No Symptoms Psychological: No Symptoms Endocrine: No Symptoms Hematologic/Lymphatic: No Symptoms Immunological/Allergic: No Symptoms All Other Systems: Reviewed and Negative - Past Medical History Pertinent Past Medical History: Yes Neurological History: No Pertinent History ENT History: Cataracts Cardiac History: High Cholesterol, Hypertension Respiratory History: Pneumonia Endocrine Medical History: No Pertinent History Musculoskeletal History: Osteoarthritis, Other GI Medical History: GERD History: No Pertinent History Psycho-Social History: No Pertinent History Female Reproductive Disorders: No Pertinent History Other Medical History: scoliosis, increased SOB with walking due to diaphragm elevated up into lungs. B THR 2003 and 2008. R RTC repair, hysterectomy - Past Surgical History Past Surgical History: Yes Neuro Surgical History: No Pertinent History Cardiac: Cardiac Catheterization, Pacemaker Respiratory: No Pertinent History Gastrointestinal: Appendectomy Genitourinary: No Pertinent History Musculoskeletal: Joint Replacement, Orthopedic Surgery Female Surgical History: Hysterectomy, Tubal Ligation, Other Other Surgical History: LUMPS REMOVED FROM BREAST, LEFT KNEE REPLACEMET, BOTH HIP REPLACEMENTS, ROTATOR CUFF - Social History Smoking Status: Never smoker Exposure to second hand smoke: No Drug Use: none - Nursing Vital Signs Nursing Vital Signs: Initial Vital Signs Temperature 98 F 10/08/23 11:18 Pulse Rate 81 10/08/23 11:18 Respiratory Rate 20 10/08/23 11:18 Blood Pressure 144/109 10/08/23 11:18 O2 Sat by Pulse Oximetry 96 10/08/23 11:18 Pain Scale Pain Intensity [Left hip] 8 Pain Intensity 4 - Physical Exam General Appearance: no apparent distress, alert, anxiety, obese Eye Exam: PERRL/EOMI, eyes nml inspection Ears, Nose, Throat Exam: normal ENT inspection, moist mucous membranes Neck Exam: normal inspection, non-tender, supple, full range of motion Respiratory Exam: airway intact, No chest tenderness, No respiratory distress Gastrointestinal Exam: No tenderness Pelvic Exam: not done Rectal Exam: not done Back Exam: normal inspection, normal range of motion, No CVA tenderness, No vertebral tenderness Extremity Exam: normal inspection, normal range of motion, pelvis stable Neurologic Exam: alert, oriented x 3, cooperative, resource development manager II-XII nml as tested, normal mood/affect Skin Exam: normal color, warm, dry Lymphatic Exam: No adenopathy SpO2 Interpretation: normal O2 Delivery: Room Air - Course Nursing assessment & vital signs reviewed: Yes Ordered Tests: Active Orders 24 hr Category Date Time Status HIP UNI (2V) INCL PEL IF DONE Stat Exams 10/08/23 12:13 Taken Medication Summary Discontinued Medications Generic Name Dose Route Start Last Admin Trade Name Ni PRN Reason Stop Dose Admin Oxycodone/Acetaminophen 1 tab 10/08/23 12:12 10/08/23 12:18 Oxycodone Hcl/Apap 5 Mg/325 Mg Tablet PO 10/08/23 12:13 1 tab STAT STA Administration Oxycodone/Acetaminophen Confirm 10/08/23 12:16 Oxycodone Hcl/Apap 5 Mg/325 Mg Tablet Administered 10/08/23 12:17 Dose 1 tab .ROUTE .STK-MED ONE - Progress Progress: improved, pain not gone completely Progress Note: 10/08/23 12:27 This patient's medical issue is 1 of low complexity. The level of complexity in the workup performed is based on review of the patient's past medical history, review of the patient's medication list, review of patient's drug allergy list, history present illness and physical findings on examination. No laboratory data are necessary in this workup. We will x-ray the pelvis and left hip. We will provide the patient with an oral Percocet 5/325 pill here in the emergency department 10/08/23 12:54 I interpreted the x-ray of the pelvis and left hip. There are no new, acute fractures or dislocations present. The hardware appears to be in the appropriate position. Counseled pt/family regarding: diagnosis, need for follow-up, rad results Medical Desision Making - Diagnostic Testing Diagnostic test were ordered, analyzed, and reviewed by me: Yes Radiological Interpretation: Interpreted by me - Risk of complications The pt has a mod risk of morbidity or mortality based on: Need for prescription drug management - Departure Departure Disposition: Home Clinical Impression: Left hip pain Condition: Stable Critical Care Time: No Referrals: MATEO LOPEZ DO [Primary Care Provider] - Follow up/PCP as directed Prescriptions: Oxycodone HCl/Acetaminophen [Percocet 5-325 mg Tablet] 1 each PO Q8H PRN PRN #6 tablet MDD 3 PRN Reason: Moderate To Severe Pain
[2023-10-08 11:51] VITALS: TEMP 98
[2023-10-08] MEDS ORDERED: PERCOCET TABLET 5/325MG PO STA (12:12)
[2023-10-08] MEDS ORDERED: PERCOCET TABLET 5/325MG ONE (12:16)
--- NOTE | 2023-10-08 12:57 | XRAY ---
Indication: Left hip pain. No recent injury. Comparison: None AP pelvis and 2 view left hip demonstrates osteopenia, bilateral total hip arthroplasty with intact bipolar prosthesis, moderate degenerative spondylosis with levorotoscoliosis visualized lower lumbar spine, mild aortic calcifications, and right pelvic surgical clips. No other bony, articular, or soft tissue abnormalities.
[2023-10-08 13:54] VITALS: BP 144/89; PULSE 78; RESP 18; O2SAT 95
== END 2023-10-08 13:46 | disposition home or self-care (01) ==
LOC: ED 11:17
DX: M25.552 Pain in left hip (principal); Z96.643 Presence of artificial hip joint, bilateral; E78.5 Hyperlipidemia, unspecified; I10 Essential (primary) hypertension; Z79.01 Long term (current) use of anticoagulants; Z79.891 Long term (current) use of opiate analgesic; Z79.899 Other long term (current) drug therapy
CPT/HCPCS: 73502; 99283; A9270-GY